=== PATIENT | female | born 1945 | race Caucasian/White ===

== ENCOUNTER → 2019-10-02 | Outpatient (REF) | payer MEDICARE, OTHER, BC | LOC: M WUC 09:11 | PROVIDERS: ATTEND Physician Assistant | DX: N39.0 Urinary tract infection, site not specified (principal) ==

== ENCOUNTER → 2020-11-06 | Outpatient (REF) | payer MEDICARE, OTHER, BC | LOC: M LAB REF 12:27 | PROVIDERS: ATTEND Family Medicine | DX: H53.9 Unspecified visual disturbance (principal); H53.452 Other localized visual field defect, left eye ==

== ENCOUNTER → 2020-11-10 | Outpatient (CLI) | payer MEDICARE, OTHER, BC ==
[~2020-11-10] MED LIST: PROHANCE 279.3MG/ML 15ML VIAL As Ordered ONE
--- NOTE | 2020-11-10 16:10 | REP ---
INDICATION: H53.9 VISUAL DISTURBANCE H53.452 VISION FIELD DEFE. COMPARISON: None. TECHNIQUE: Axial and sagittal imaging planes are utilized for T1 and T2-weighted scans. Sequences include spin-echo, fast spin echo, FLAIR, and diffusion weighted sequences. 6 mL of intravenous ProHance is administered and post gadolinium enhanced images are acquired in all 3 planes. FINDINGS: Bony calvarium is intact. Craniocervical junction upper cervical cord are normal in appearance. There is no MR evidence of significant paranasal sinus disease. No intraorbital mass is observed on either side. No vascular abnormality is appreciated. There is mild small vessel change in the periventricular white matter bilaterally. Minimal generalized volume loss is seen. There is dilated perivascular space in the right inferior basal ganglia. This is normal variant. Diffusion-weighted scans show no evidence of restricted diffusion to suggest acute ischemia. No mass or hemorrhage is seen. Postcontrast images show enhancement in normal vasculature. No abnormal intracranial contrast enhancement is seen. IMPRESSION: Mild generalized volume loss and small vessel changes. No acute intracranial abnormality. <Electronically signed by Dennis Melendez > 11/10/20 [id number]
--- NOTE | 2020-11-10 17:04 | REP ---
INDICATION: UNSPEC VISUAL DISTURBANCE. COMPARISON: None. TECHNIQUE: Axial, coronal, and sagittal imaging planes are utilized. T1 and T2 weighted scans are included with without fat saturation. Pre and postcontrast imaging is included. 6 mL of intravenous ProHance is administered. FINDINGS: Ocular globes are normal and symmetric bilaterally. The extraocular muscles are normal in size. No intraconal or extraconal orbital mass lesion is seen. There is no evidence of significant paranasal sinus disease. Optic nerves are it is symmetric. Sella turcica is not enlarged. The pituitary stalk is in the midline. Suprasellar cistern is unremarkable. Optic chiasm is intact. No vascular abnormality is appreciated. No abnormal contrast enhancement. IMPRESSION: Unremarkable MRI study of the orbits. <Electronically signed by Dennis Melendez > 11/10/20 [id number]
== END ==
LOC: M RAD 13:31
PROVIDERS: ATTEND Ophthalmology
DX: H53.9 Unspecified visual disturbance (principal); H53.452 Other localized visual field defect, left eye
CPT/HCPCS: 70543; 70553; A9576

== ENCOUNTER → 2021-04-27 | Outpatient (REF) | payer MEDICARE, OTHER, BC | LOC: M LAB REF 14:56 | PROVIDERS: ATTEND Registered Nurse | DX: R19.7 Diarrhea, unspecified (principal) ==

== ENCOUNTER → 2021-11-09 | Outpatient (REF) | payer MEDICARE, OTHER, BC ==
[2021-11-09 18:05] LABS: APPEARANCE, URINE CLOUDY (CLEAR); BACTERIA, URINE AUTO 1+ (NEGATIVE); BILIRUBIN, URINE AUTO NEGATIVE (NEGATIVE); BLOOD, URINE BLOOD 2+ (NEGATIVE); COLOR, URINE YELLOW (YELLOW); GLUCOSE, URINE (UA) AUTO NEGATIVE (NEGATIVE); KETONE, URINE AUTO NEGATIVE (NEGATIVE); LEUKOCYTE ESTERASE, URINE AUTO 3+ (NEGATIVE); MUCUS, URINE SMALL (NEGATIVE); NITRITE, URINE AUTO NEGATIVE (NEGATIVE); PROTEIN, URINE AUTO 3+ mg/dL (NEGATIVE); RBC, URINE AUTO TNTC /HPF (0-3); SPECIFIC GRAVITY URINE AUTO 1.016 (1.002-1.035); SQUAMOUS EPITHELIAL CELL UR AU 1 /HPF (0-6); UROBILINOGEN, URINE AUTO 0.2 mg/dL (0.0-2.0); WBC, URINE AUTO TNTC /HPF (0-3)
== END ==
LOC: M LAB REF 16:14
PROVIDERS: ATTEND Physician Assistant
DX: N39.0 Urinary tract infection, site not specified (principal)

== ENCOUNTER → 2022-02-01 | Outpatient (CLI) | payer MEDICARE, OTHER, BC | LOC: M WHC 12:35 | PROVIDERS: ATTEND Family Medicine | DX: Z12.31 Encounter for screening mammogram for malignant neoplasm of breast (principal) ==

== ENCOUNTER → 2022-11-19 | Outpatient (CLI) | payer MEDICARE, OTHER, BC | LOC: M WHC 10:35 | PROVIDERS: ATTEND Family Medicine | DX: M85.89 Other specified disorders of bone density and structure, multiple sites (principal) ==

== ENCOUNTER → 2024-01-06 | Outpatient (CLI) | payer MEDICARE, OTHER ==
[2024-01-06 14:52] LABS: BASO % 0.8 % (0.0-1.0); EOS # 0.1 10^3/uL (0.0-0.5); EOS % 1.8 % (0.0-3.0); HEMATOCRIT 37.1 % (36.0-47.0); HEMOGLOBIN 12.1 g/dl (12.0-15.5); LYMPH # 1.8 10^3/uL (1.5-5.0); LYMPH % 35.8 % (24.0-44.0); MEAN CORPUSCULAR HEMOGLOBIN 30.6 pg (27.0-33.0); MEAN CORPUSCULAR HGB CONC 32.6 g/dl (32.0-36.5); MEAN CORPUSCULAR VOLUME 93.9 fl (80.0-96.0); MONO # 0.6 10^3/uL (0.0-0.8); MONO % 11.8 % (2.0-8.0); NEUTROPHILS # 2.5 10^3/uL (1.5-8.5); NEUTROPHILS % 49.6 % (36.0-66.0); PLATELET COUNT, AUTOMATED 188 10^3/uL (150-450); RED BLOOD COUNT 3.95 10^6/uL (4.00-5.40); WHITE BLOOD COUNT 5.1 10^3/uL (4.0-10.0)
[2024-01-06 15:10] LABS: ALBUMIN 3.4 G/DL (3.2-5.2); ALKALINE PHOSPHATASE 69 U/L (46-116); ALT/SGPT 15 U/L (7.0-40); AST/SGOT 18 U/L (<34); BILIRUBIN,TOTAL 0.3 MG/DL (0.3-1.2); BLOOD UREA NITROGEN 25 MG/DL (9-23); CARBON DIOXIDE LEVEL 30 MMOL/L (20-31); CHLORIDE LEVEL 107 MMOL/L (98-107); CREATININE FOR GFR 0.89 MG/DL (0.55-1.30); GLOMERULAR FILTRATION RATE > 60.0 (>39); GLUCOSE, FASTING 89 MG/DL (74-106); POTASSIUM SERUM 4.3 MMOL/L (3.5-5.1); SODIUM LEVEL 141 MMOL/L (136-145); THYROXINE (T4) 7.7 UG/DL (4.5-10.9); TOTAL PROTEIN 6.4 G/DL (5.7-8.2)
[2024-01-06 15:11] LABS: FOLATE 11.93 NG/ML (>5.4)
[2024-01-06 15:13] LABS: VITAMIN B12 LEVEL 321 PG/ML (211-911)
[2024-01-06 15:15] LABS: FREE THYROXINE INDEX 3.2 % (1.3-4.8); T UPTAKE 41.1 % (22.5-37.0)
[2024-01-06 15:18] LABS: ERYTHROCYTE SEDIMENTATION RATE 14 mm/hr (0-30)
== END ==
LOC: M PLALAB 11:26
PROVIDERS: ATTEND Psychiatry & Neurology Neurology
DX: E07.9 Disorder of thyroid, unspecified (principal); E53.8 Deficiency of other specified B group vitamins; R41.3 Other amnesia

== ENCOUNTER 2024-09-15 09:00 | Emergency (ER) | payer MEDICARE, OTHER ==
[~2024-09-15] VITALS: Ht 152.4 cm; Wt 115.0 kg
[2024-09-15 09:44] LABS: BASO % 0.4 % (0.0-1.0); EOS % 0.4 % (0.0-3.0); HEMATOCRIT 37.1 % (36.0-47.0); HEMOGLOBIN 12.3 g/dl (12.0-15.5); LYMPH % 12.6 % (24.0-44.0); MEAN CORPUSCULAR HEMOGLOBIN 30.8 pg (27.0-33.0); MEAN CORPUSCULAR HGB CONC 33.2 g/dl (32.0-36.5); MONO # 0.7 10^3/uL (0.0-0.8); MONO % 8.1 % (2.0-8.0); NEUTROPHILS # 6.3 10^3/uL (1.5-8.5); NEUTROPHILS % 78.3 % (36.0-66.0); PLATELET COUNT, AUTOMATED 159 10^3/uL (150-450); RED BLOOD COUNT 3.99 10^6/uL (4.00-5.40)
[2024-09-15 10:23] LABS: BLOOD UREA NITROGEN 25 MG/DL (9-23); CALCIUM LEVEL 9.7 MG/DL (8.3-10.6); CARBON DIOXIDE LEVEL 28 MMOL/L (20-31); CHLORIDE LEVEL 104 MMOL/L (98-107); CREATININE FOR GFR 0.92 MG/DL (0.55-1.30); GLOMERULAR FILTRATION RATE > 60.0 (>32); GLUCOSE, FASTING 152 MG/DL (74-106); SODIUM LEVEL 139 MMOL/L (136-145)
[2024-09-15 10:49] LABS: CPK CREATINE PHOSPHOKINASE 58 U/L (34-145)
[2024-09-15 11:09] LABS: CK-MB VALUE MASS < 1.0 NG/ML (<3.6); MB/CK RELATIVE INDEX 1.72 (< OR =4)
[2024-09-15] MEDS ORDERED: ISOVUE-370 76% 100ML VIAL As Ordered ONE (11:43)
[2024-09-15 13:37] VITALS: BP 131/62; TEMP 97.9; O2SAT 98
== END 2024-09-15 13:44 | disposition home or self-care (01) ==
LOC: M ED 09:00 → EDBD 09:00 → M ED 13:44
DX: R07.9 Chest pain, unspecified (principal); R91.1 Solitary pulmonary nodule; N28.1 Cyst of kidney, acquired; I10 Essential (primary) hypertension; K21.9 Gastro-esophageal reflux disease without esophagitis; K44.9 Diaphragmatic hernia without obstruction or gangrene; F03.90 Unspecified dementia, unspecified severity, without behavioral disturbance, psychotic disturbance, mood disturbance, and anxiety
CPT/HCPCS: 36415; 71045; 71275; 80048; 82550; 82553; 84484; 85025; 93005; 93041; 94760; 99285; Q9967

== ENCOUNTER → 2025-03-22 | Outpatient (CLI) | payer MEDICARE, OTHER ==
[~2025-03-22] MED LIST changes: +ISOVUE-370 76% 100 ML VIAL As Ordered ONE; -PROHANCE 279.3MG/ML 15ML VIAL As Ordered ONE
== END ==
LOC: M RAD 12:38
PROVIDERS: ATTEND Family Medicine
DX: R91.1 Solitary pulmonary nodule (principal)
CPT/HCPCS: 71260; 82565; Q9967

== ENCOUNTER → 2025-05-12 | Outpatient (REF) | payer MEDICARE, OTHER ==
[2025-05-12 15:58] LABS: VITAMIN B12 LEVEL 435.0 PG/ML (211-911)
== END ==
LOC: M LAB REF 12:03
PROVIDERS: ATTEND Family Medicine
DX: G30.9 Alzheimer's disease, unspecified (principal); D64.9 Anemia, unspecified